=== PATIENT | female | born 1940 | race Caucasian/White ===

== ENCOUNTER 2018-01-09 10:25 | Emergency (ER) | payer MEDICARE, OTHER ==
--- NOTE | 2018-01-09 11:05 | RADIOLOGY REPORT (SQ) ---
EXAM DESCRIPTION: FOOT LEFT COMPLETE COMPLETED DATE/TIME: 01/09/2018 10:47 am REASON FOR STUDY: pain swellling from injury COMPARISON: 07/06/2012 NUMBER OF VIEWS: Three views. TECHNIQUE: AP, lateral and oblique radiographic images acquired of the left foot. LIMITATIONS: None. FINDINGS: MINERALIZATION: Normal. BONES: Old fracture or apophysis base of 5th metatarsal. No acute fracture or dislocation. No worri some bone lesions. JOINTS: No effusions. SOFT TISSUES: No soft tissue swelling. No foreign body. OTHER: No other significant finding. IMPRESSION: NO RADIOGRAPHIC EVIDENCE OF ACUTE INJURY. TECHNICAL DOCUMENTATION: JOB ID: [id number] [employer]- All Rights Reserved Reading location - IP/workstation name: [email or web address]
--- NOTE | 2018-01-09 11:27 | ER Document Report ---
HPI - HPI Patient complains to provider of: left lateral foot inury Onset: Last week - 5 days ago Onset/Duration: Persistent Pain Level: 5 Context: 77 yo female fell in dug post hole 5 days ago. Pain started few days later with swelling over the base of the 5th MT. No known previous injury. Is able to bear weight on it. No previous injury Associated Symptoms: None Exacerbated by: Walking Relieved by: Denies Similar symptoms previously: No Recently seen / treated by doctor: No - ROS ROS below otherwise negative: Yes Systems Reviewed and Negative: Yes All other systems reviewed and negative - REPRODUCTIVE Reproductive: DENIES: : Past Medical History - General Information source: Patient - Social History Smoking Status: Never Smoker Lives with: Spouse/Significant other Family History: Reviewed & Not Pertinent - Past Medical History Cardiac Medical History: Reports: Hx Heart Attack - RESULTED FROM COMPLICATION FROM HEART CATH 2001, Hx Hypertension Pulmonary Medical History: Reports: Hx Asthma - SMOKER FOR 35 YEAR. QUIT SMOKING 12 YRS AGO GI Medical History: Musculoskeletal Medical History: Past Surgical History: Reports: Hx Cardiac Catheterization, Hx Coronary Artery Bypass Graft, Hx Open Heart Surgery - Immunizations Immunizations up to date: Yes Hx Diphtheria, Pertussis, Tetanus Vaccination: Yes - 2008 Hx Pneumococcal Vaccination: 03/06/09 Vertical Provider Document - CONSTITUTIONAL Agree With Documented VS: Yes Exam Limitations: No Limitations General Appearance: No Apparent Distress - INFECTION CONTROL TRAVEL OUTSIDE OF THE [place] IN LAST 30 DAYS: No - MUSCULOSKELETAL/EXTREMETIES Musculoskeletal/Extremeties: MAEW, FROM, Tender - mld over proximal 5th MT and tarsal Notes: 2 + DP - NEURO Level of Consciousness: Alert Motor/Sensory: No Motor Deficit, No Sensory Deficit Course - Re-evaluation Re-evalutation: 01/09/18 11:[address] Elias the radiologist who read the x-ray and she has a old fracture of the base of the fifth metatarsal apophysi, no acute injury. Will put patient on Michael wrap and have her follow-up with orthopedics, she does not want walker or crutches - Vital Signs Vital signs: Temp Pulse Resp BP Pulse Ox 98.3 F 86 18 157/74 H 95 01/09/18 10:52 01/09/18 10:52 01/09/18 10:52 01/09/18 10:52 01/09/18 10:52 Procedures - Immobilization Right Foot Time completed: 11:55 Pre-Proc Neuro Vasc Exam: Normal Immobilizer type: Michael wrap Performed by: RN Post-Proc Neuro Vasc Exam: Normal Alignment checked and good: Yes Discharge - Discharge Clinical Impression: Right foot sprain Qualifiers: Encounter type: initial encounter Qualified Code(s): S93.601A - Unspecified sprain of right foot, initial encounter Condition: Good Disposition: HOME, SELF-CARE Instructions: Sprain ([facility]), Warm Packs ([facility]) Additional Instructions: Warm compress Tylenol up to 4000 mg a day for pain See orthopedic doctor for follow-up Copy of negative imaging report given to you Referrals: EDDIE RYAN MD [ACTIVE STAFF] - Follow up as needed
[2018-01-09 12:09] VITALS: BP 143/74
== END 2018-01-09 12:12 | disposition home or self-care (01) ==
LOC: ER 10:25
DX: S93.601A Unspecified sprain of right foot, initial encounter (principal); M79.89 Other specified soft tissue disorders; W17.2XXA Fall into hole, initial encounter; I10 Essential (primary) hypertension; J45.909 Unspecified asthma, uncomplicated; Z87.891 Personal history of nicotine dependence
CPT/HCPCS: 99283

== ENCOUNTER 2019-12-10 15:15 | Emergency (ER) | payer MEDICARE, OTHER ==
--- NOTE | 2019-12-10 16:34 | ER Document Report ---
ED Medical Screen (RME) - General Chief Complaint: Fever Stated Complaint: CHILLS,FEVER,COUGH,CONGESTION Time Seen by Provider: 12/10/19 16:27 Mode of Arrival: Ambulatory - Using walker Information source: Patient Notes: 79-year-old female presented to ED for cough cold congestion chills fever for couple weeks. She states she just cannot seem to break this fever. She states is been at least 101 for the last several days. She states she thinks is been 4 days. She states she been taking 2 325 mg Tylenol every 4 hours due to the fever. She does have a history of high blood pressure. She states they did a cardiac cath and when they did they nicked the aorta so they had to do a bypass surgery. She is a former smoker no alcohol no drugs. I have greeted and performed a rapid initial assessment of this patient. A comprehensive ED assessment and evaluation of the patient, analysis of test results and completion of medical decision making process will be conducted by an additional ED providers. TRAVEL OUTSIDE OF THE [place] IN LAST 30 DAYS: No - Related Data Allergies/Adverse Reactions: doxycycline [Doxycycline] Allergy (Mild, Verified 01/09/18 10:29) Nausea Heparin Analogues [Heparin Agents] Allergy (Verified 01/09/18 10:29) DROPPED WHITE COUNT Past Medical History - Past Medical History Cardiac Medical History: Reports: Hx Heart Attack - RESULTED FROM COMPLICATION FROM HEART CATH 2001, Hx Hypertension Pulmonary Medical History: Reports: Hx Asthma - SMOKER FOR 35 YEAR. QUIT SMOKING 12 YRS AGO Neurological Medical History: Denies: Hx Cerebrovascular Accident, Hx Seizures Renal/ Medical History: Denies: Hx Peritoneal Dialysis GI Medical History: Denies: Hx Hepatitis, Hx Ulcer Musculoskeltal Medical History: Infectious Medical History: Denies: Hx Hepatitis Past Surgical History: Reports: Hx Cardiac Catheterization, Hx Coronary Artery Bypass Graft, Hx Open Heart Surgery. Denies: Hx Mastectomy, Hx Pacemaker - Immunizations Immunizations up to date: Yes Hx Diphtheria, Pertussis, Tetanus Vaccination: Yes - 2008 Physical Exam - Vital signs Vitals: Temp Pulse Resp BP Pulse Ox 99.1 F 99 16 128/69 H 97 12/10/19 15:36 12/10/19 15:36 12/10/19 15:36 12/10/19 15:36 12/10/19 15:36 Course - Vital Signs Vital signs: Temp Pulse Resp BP Pulse Ox 99.1 F 99 16 128/69 H 97 12/10/19 15:36 12/10/19 15:36 12/10/19 15:36 12/10/19 15:36 12/10/19 15:36
--- NOTE | 2019-12-10 17:16 | RADIOLOGY REPORT (SQ) ---
EXAM DESCRIPTION: CHEST SINGLE VIEW IMAGES COMPLETED DATE/TIME: 12/10/2019 4:53 pm REASON FOR STUDY: cough short of breath COMPARISON: None. TECHNIQUE: Single frontal radiographic view of the chest acquired. NUMBER OF VIEWS: One view. LIMITATIONS: None. FINDINGS: LUNGS AND PLEURA: No pneumothorax. Mild interstitial thickening. No consolidation or ple ural effusion. MEDIASTINUM AND HILAR STRUCTURES: Age-appropriate contour. HEART AND VASCULAR STRUCTURES: Heart normal size. BONES: No acute findings. HARDWARE: CABG. OTHER: No other significant finding. IMPRESSION: Mild interstitial thickening. No consolidation or pleural effusion. TECHNICAL DOCUMENTATION: JOB ID: [id number] [id number] 2010 [employer]- All Rights Reserved Reading location - IP/workstation name: [email or web address]
--- NOTE | 2019-12-10 20:49 | ER Document Report ---
Entered by LEILANI JANSEN SCRIBE 12/10/192037 Acting as scribe for:AIDE MERCEDES DO ED General - General Chief Complaint: Shortness Of Breath Stated Complaint: CHILLS,FEVER,COUGH,CONGESTION Time Seen by Provider: 12/10/19 16:27 Mode of Arrival: Ambulatory - Using walker Information source: Patient Notes: This 79 year old female patient presents to the emergency department today with complaints of cough and shortness of breath for the last six weeks. She reports that her cough and sputum production get worse when lying in a supine position. Patient mentions that her sputum is "slimy and yellow". She reports associated fevers and chills but denies any known COVID-19 exposure, nausea, or vomiting. TRAVEL OUTSIDE OF THE [place] IN LAST 30 DAYS: No - Related Data Allergies/Adverse Reactions: doxycycline [Doxycycline] Allergy (Mild, Verified 12/10/19 20:16) Nausea Heparin Analogues [Heparin Agents] Allergy (Verified 12/10/19 20:16) DROPPED WHITE COUNT Past Medical History - General Information source: Patient - Social History Smoking Status: Former Smoker Frequency of alcohol use: None Drug Abuse: None Lives with: Family Family History: Reviewed & Not Pertinent - Past Medical History Cardiac Medical History: Reports: Hx Heart Attack - RESULTED FROM COMPLICATION FROM HEART CATH 2001, Hx Hypertension Pulmonary Medical History: Reports: Hx Asthma - SMOKER FOR 35 YEAR. QUIT SMOKING 12 YRS AGO GI Medical History: Musculoskeletal Medical History: Past Surgical History: Reports: Hx Cardiac Catheterization, Hx Coronary Artery Bypass Graft, Hx Open Heart Surgery - Immunizations Immunizations up to date: Yes Hx Diphtheria, Pertussis, Tetanus Vaccination: Yes - 2008 Hx Pneumococcal Vaccination: 03/06/09 Review of Systems - Review of Systems Constitutional: See HPI, Chills, Fever EENT: No symptoms reported Cardiovascular: No symptoms reported Respiratory: See HPI, Cough, Short of breath Gastrointestinal: denies: Nausea, Vomiting Genitourinary: No symptoms reported Female Genitourinary: No symptoms reported Musculoskeletal: No symptoms reported Skin: No symptoms reported Hematologic/Lymphatic: No symptoms reported Neurological/Psychological: No symptoms reported -: Yes All other systems reviewed and negative Physical Exam - Vital signs Vitals: Temp Pulse Resp BP Pulse Ox 99.1 F 99 16 128/69 H 97 12/10/19 15:36 12/10/19 15:36 10/06/20 15:36 12/10/19 15:36 12/10/19 15:36 - Notes Notes: Physical Exam: General: Alert, appears well. HEENT: Normocephalic. Atraumatic. PERRL. Extraocular movements intact. Ramiro pharynx clear. Neck: Supple. Non-tender. Respiratory: No respiratory distress. Decreased air movement at the bases bilaterally, no rhonchi or rales. Cardiovascular: Regular rate and rhythm. Abdominal: Obese. Non-tender. No distension. Normal Bowel Sounds. Back: No gross abnormalities. Extremities: Moves all four extremities. Upper extremities: Normal inspection. Normal ROM. Lower extremities: Normal inspection. No edema. Normal ROM. Neurological: Normal cognition. AAOx4. Normal speech. Psychological: Normal affect. Normal Mood. Skin: Warm. Dry. Normal color. Course - Re-evaluation Re-evalutation: 12/11/19 01:26 MDM 79 year old female with several weeks of cough and feeling sore in chest after cough. Cough is productive at times. Covid sent off but no hypoxia and looks well here. Nontoxic. She has pcp locally and can follow up. We discussed return precautions. - Vital Signs Vital signs: Temp Pulse Resp BP Pulse Ox 99.1 F 99 16 128/69 H 97 12/10/19 15:36 12/10/19 15:36 12/10/19 15:36 12/10/19 15:36 12/10/19 15:36 - Laboratory Result Diagrams: 12/10/19 21:00 12/10/19 21:00 Laboratory results interpreted by me: 12/10/19 12/10/19 12/10/19 21:00 21:00 21:00 WBC 10.7 H Hgb 16.0 H Est GFR ( Amer) 57 L Est GFR (MDRD) Non-Af 47 L Glucose 136 H Urine Protein 100 H Urine Urobilinogen 2.0 H - Diagnostic Test Radiology reviewed: Image reviewed, Reports reviewed Discharge - Discharge Clinical Impression: Cough, Bronchitis Condition: Stable Disposition: HOME, SELF-CARE Instructions: COVID-19 Guidance for Persons Under Investigation, Acetaminophen, Bronchitis ([facility]) Additional Instructions: Rest, plenty of fluids. See your doctor in follow up. Call later today. Please return here for chest pain, shortness of breath, persistent vomiting or other problems or concerns. Take your antibiotics until gone. Your medicine was sent to [facility] in [place]. I personally performed the services described in the documentation, reviewed and edited the documentation which was dictated to the scribe in my presence, and it accurately records my words and actions.
[2019-12-10 21:29] LABS: ABSOLUTE BASOPHILS # (AUTO) 0.1 10^3/uL (0.0-0.2); ABSOLUTE EOSINOPHILS # (AUTO) 0.3 10^3/uL (0.0-0.6); ABSOLUTE LYMPHOCYTES (AUTO) 2.9 10^3/uL (0.5-4.7); ABSOLUTE MONOCYTES (AUTO) 0.7 10^3/uL (0.1-1.4); ABSOLUTE NEUT (AUTO) 6.7 10^3/uL (1.7-8.2); BASOPHILS % (AUTO) 0.7 % (0-2); EOSINOPHILS % (AUTO) 2.8 % (0-6); HEMATOCRIT 46.4 % (36.0-47.0); LYMPHOCYTES % (AUTO) 27.1 % (13-45); MEAN CORPUSCULAR HEMOGLOBIN 31.8 pg (27.0-33.4); MEAN CORPUSCULAR HGB CONC 34.4 g/dL (32.0-36.0); MEAN CORPUSCULAR VOLUME 92 fl (80-97); MONOCYTES % (AUTO) 6.6 % (3-13); PLATELET COUNT 394 10^3/uL (150-450); RED BLOOD COUNT 5.02 10^6/uL (3.72-5.28); RED CELL DISTRIBUTION WIDTH 13.7 % (11.5-14.0); SEGMENTED NEUTROPHILS % (AUTO) 62.8 % (42-78); TOTAL CELLS COUNTED % (AUTO) 100 %; WHITE BLOOD COUNT 10.7 10^3/uL (4.0-10.5)
[2019-12-10 21:38] LABS: APPEARANCE,URINE SLIGHTLY-CLOUDY; BILIRUBIN,URINE NEGATIVE (NEGATIVE); CALCIUM OXALATE CRYSTALS,URINE RARE /HPF; COLOR,URINE AMBER; GLUCOSE, URINE NEGATIVE (NEGATIVE); KETONES,URINE NEGATIVE (NEGATIVE); LEUKOCYTE ESTERASE,URINE NEGATIVE (NEGATIVE); NITRITE,URINE NEGATIVE (NEGATIVE); PROTEIN,URINE 100 mg/dL (NEGATIVE); URINE SPECIFIC GRAVITY 1.031
[2019-12-10 21:40] LABS: ALBUMIN 4.4 g/dL (3.5-5.0); ALKALINE PHOSPHATASE 87 U/L (38-126); ANION GAP 13 (5-19); ASPARTATE AMINO TRANSFERASE 26 U/L (14-36); BILIRUBIN,DIRECT 0.3 mg/dL (0.0-0.4); BILIRUBIN,TOTAL 0.8 mg/dL (0.2-1.3); BLOOD UREA NITROGEN 20 mg/dL (7-20); CALCIUM 10.1 mg/dL (8.4-10.2); CARBON DIOXIDE 24 mmol/L (22-30); CHLORIDE 105 mmol/L (98-107); GLUCOSE 136 mg/dL (75-110); POTASSIUM 4.3 mmol/L (3.6-5.0); TOTAL PROTEIN 7.8 g/dL (6.3-8.2)
[2019-12-10 23:57] LABS: A TYPE INFLUENZA AG NEGATIVE (NEGATIVE); B INFLUENZA AG NEGATIVE (NEGATIVE)
[2019-12-11] MEDS ORDERED: CEPHALEXIN 500 MG CAPSULE PO ONE (00:51)
[2019-12-11 02:22] VITALS: BP 135/53
== END 2019-12-11 02:02 | disposition home or self-care (01) ==
LOC: ER 15:15
DX: J40 Bronchitis, not specified as acute or chronic (principal); R06.02 Shortness of breath; R50.9 Fever, unspecified; I10 Essential (primary) hypertension; Z20.828 Contact with and (suspected) exposure to other viral communicable diseases; Z95.1 Presence of aortocoronary bypass graft; I25.2 Old myocardial infarction
CPT/HCPCS: 99284; 36415; 87040; 83605; 85025; 80053; 81001; 87804; 71045; U0003; A9270; C9803; 87635